=== PATIENT | male | born 1955 | race Caucasian/White ===

== ENCOUNTER 2018-03-09 15:52 | Emergency (ER) | payer OTHER ==
[~2018-03-09] VITALS: Ht 185.4 cm; Wt 90.0 kg
[2018-03-09 16:20] VITALS: BP 152/92; PULSE 50; RESP 20; TEMP 97.6; O2SAT 98
[2018-03-09] MEDS ORDERED: GABA100C4 PO (16:25)
[2018-03-09] MEDS ORDERED: VITA1000 PO (16:25)
[2018-03-09] MEDS ORDERED: HYDROmorphone HCL PF 2 MG/ML VIAL IV PUSH ONE (17:15)
[2018-03-09] MEDS ORDERED: SODIUM CHLOR 0.9% 1000 ML INJ 1,000 ML IV ONE (17:15)
[2018-03-09] MEDS ORDERED: ONDANSETRON HCL 4 MG/2 ML VIAL IV PUSH ONE (17:15)
[2018-03-09] MEDS ORDERED: ONDANSETRON ODT 4 MG TAB PO ONE (17:45)
[2018-03-09 17:56] LABS: AUTOMATED NEUTROPHIL # 9.6 TH/MM3 (1.8-7.7); BASOPHIL # 0.1 TH/MM3 (0-0.2); BASOPHIL % 0.5 % (0.0-2.0); HEMATOCRIT 43.4 % (39.0-51.0); HEMOGLOBIN 14.5 GM/DL (13.0-17.0); LYMPH % 11.2 % (9.0-44.0); LYMPHOCYTE # 1.3 TH/MM3 (1.0-4.8); MEAN CELL VOLUME 90.4 FL (80.0-100.0); MEAN CORPUSCULAR HEMOGLOBIN 30.1 PG (27.0-34.0); MEAN CORPUSCULAR HGB CONC 33.4 % (32.0-36.0); MEAN PLATELET VOLUME 9.6 FL (7.0-11.0); MONO % 7.6 % (0.0-8.0); MONOCYTE # 0.9 TH/MM3 (0-0.9); NEUT % 80.7 % (16.0-70.0); PLATELET COUNT 197 TH/MM3 (150-450); RED CELL DISTRIBUTION WIDTH 13.2 % (11.6-17.2); WHITE BLOOD COUNT 11.9 TH/MM3 (4.0-11.0)
[2018-03-09 18:16] LABS: ALBUMIN 3.7 GM/DL (3.4-5.0); AST (GOT) 16 U/L (15-37); BICARBONATE 17.5 MEQ/L (21.0-32.0); BLOOD UREA NITROGEN 17 MG/DL (7-18); CALCIUM 8.8 MG/DL (8.5-10.1); CHLORIDE 109 MEQ/L (98-107); CREATININE 1.03 MG/DL (0.60-1.30); GLOMERULAR FILTRATION RATE 73 ML/MIN (>89); GLUCOSE,RANDOM 89 MG/DL (74-106); SODIUM (NA) 142 MEQ/L (136-145)
--- NOTE | 2018-03-09 18:16 | RADRPT ---
EXAM DATE: 03/09/2018 6:06 PM EDT AGE/SEX: 63 years / Male INDICATIONS: Right sided flank pain. CLINICAL DATA: This is the patient's initial encounter. Patient reports that signs and symptoms have been present for 1 day and indicates a pain score of 4/10. MEDICAL/SURGICAL HISTORY: . Hernia. None. RADIATION DOSE: 8.16 CTDI (mGy) COMPARISON: No prior exams available for comparison. TECHNIQUE: Multiple contiguous axial images were obtained through the abdomen. Images were obtained using multiple row detector helical technique. Using automated exposure control and adjustment of the mA and/or kV according to patient size, radiation dose was kept as low as reasonably achievable to o btain optimal diagnostic quality images. DICOM format image data is available electronically for rev iew and comparison. FINDINGS: Lung bases demonstrate some dependent atelectasis. No acute findings in the liver, spleen, adrenals o r pancreas. Small hepatic cyst. There is a tiny 2 mm nonobstructing calculus lower pole left kidney. On the right side there is mild hydronephrosis and ureteral dilatation above a 3 mm calculus just bel ow the pelvic brim. No pelvic masses or adenopathy. CONCLUSION: 1. Right-sided obstructive uropathy with mild right hydronephrosis above a 3 mm calculus in the righ t ureter just below the pelvic brim. 2. 2 mm nonobstructing calculus left kidney. Electronically signed by: Darren Og MD 03/09/2018 6:14 PM EDT
[2018-03-09 18:17] LABS: ALT (GPT) 18 U/L (12-78)
[2018-03-09 18:20] LABS: ALKALINE PHOSPHATASE 54 U/L (45-117); TOTAL BILIRUBIN ADULT 0.9 MG/DL (0.2-1.0)
[2018-03-09] MEDS ORDERED: PERC5TAB12 PO (18:50)
[2018-03-09] MEDS ORDERED: NAPR500T2 PO (18:50)
[2018-03-09] MEDS ORDERED: ONDA4TAB7 SL (18:50)
--- NOTE | 2018-03-09 18:51 | PD ---
HPI Chief Complaint: Flank/Kidney Pain Time Seen by Provider: 17:03 Travel History International Travel<30 days: No Contact w/Intl Traveler<30days: No Traveled to known affect area: No History of Present Illness HPI 63-year-old male presents emerged from complaining of right flank pain ongoing for the past 2 days or so. He said night sweats associated with nausea vomiting. Dark colored urine. No dysuria. History of kidney stones when he was young. No definite fevers. Pains been intermittent. Worsening. No help with [id number] medications. Went to the [facility] where he reportedly had imaging done and urine test, but no results. They say they are closing for the day and he was not feeling any better so I sent him to the emergency department. History Past Medical History Medical History: Denies Significant Hx Tetanus Vaccination: < 5 Years Influenza Vaccination: Yes Social History Alcohol Use: No Tobacco Use: No Allergies-Medications (Allergen,Severity, Reaction): Coded Allergies: No Known Allergies (Verified Allergy, Unknown, 03/09/18) Reported Meds & Prescriptions Reported Meds & Active Scripts Active Reported Vitamin D-1000 (Cholecalciferol) 1,000 Unit Tab 1,000 Units PO DAILY Gabapentin 100 Mg Cap 200 Mg PO TID Review of Systems Except as stated in HPI: all other systems reviewed are Neg Physical Exam Narrative GENERAL: Well-appearing 63 oh man, no acute distress. SKIN: Focused skin assessment warm/dry. HEAD: Atraumatic. Normocephalic. EYES: Pupils equal and round. No scleral icterus. No injection or drainage. ENT: No nasal bleeding or discharge. Mucous membranes pink and moist. NECK: Trachea midline. No JVD. CARDIOVASCULAR: Regular rate and rhythm. No murmur appreciated. RESPIRATORY: No accessory muscle use. Clear to auscultation. Breath sounds equal bilaterally. GASTROINTESTINAL: Abdomen soft, non-tender, nondistended. Hepatic and splenic margins not palpable. MUSCULOSKELETAL: No obvious deformities. No clubbing. No cyanosis. No edema. NEUROLOGICAL: Awake and alert. No obvious cranial nerve deficits. Motor grossly within normal limits. Normal speech. PSYCHIATRIC: Appropriate mood and affect; insight and judgment normal. Data Data Last Documented VS Vital Signs Date Time Temp Pulse Resp B/P (MAP) Pulse Ox O2 Delivery O2 Flow Rate FiO2 03/09/18 16:20 97.6 50 20 152/92 (112) 98 Orders Orders Complete Blood Count With Diff (03/09/18 17:06) Comprehensive Metabolic Panel (03/09/18 17:06) Iv Access Insert/Monitor (03/09/18 17:06) Urinalysis - C+S If Indicated (03/09/18 17:06) Lipase (03/09/18 17:06) Hydromorphone Pf Inj (Dilaudid Pf Inj) (03/09/18 17:15) Ondansetron Inj (Zofran Inj) (03/09/18 17:15) Sodium Chlor 0.9% 1000 Ml Inj (Ns 1000 M (03/09/18 17:15) Ct Abd/Pel W/O Iv Contrast (03/09/18 ) Ondansetron Odt (Zofran Odt) (03/09/18 17:45) Labs Laboratory Tests Test 03/09/18 17:45 White Blood Count 11.9 TH/MM3 Red Blood Count 4.80 MIL/MM3 Hemoglobin 14.5 GM/DL Hematocrit 43.4 % Mean Corpuscular Volume 90.4 FL Mean Corpuscular Hemoglobin 30.1 PG Mean Corpuscular Hemoglobin Concent 33.4 % Red Cell Distribution Width 13.2 % Platelet Count 197 TH/MM3 Mean Platelet Volume 9.6 FL Neutrophils (%) (Auto) 80.7 % Lymphocytes (%) (Auto) 11.2 % Monocytes (%) (Auto) 7.6 % Eosinophils (%) (Auto) 0.0 % Basophils (%) (Auto) 0.5 % Neutrophils # (Auto) 9.6 TH/MM3 Lymphocytes # (Auto) 1.3 TH/MM3 Monocytes # (Auto) 0.9 TH/MM3 Eosinophils # (Auto) 0.0 TH/MM3 Basophils # (Auto) 0.1 TH/MM3 CBC Comment DIFF FINAL Differential Comment Blood Urea Nitrogen 17 MG/DL Creatinine 1.03 MG/DL Random Glucose 89 MG/DL Total Protein 7.0 GM/DL Albumin 3.7 GM/DL Calcium Level 8.8 MG/DL Alkaline Phosphatase 54 U/L Aspartate Amino Transf (AST/SGOT) 16 U/L Alanine Aminotransferase (ALT/SGPT) 18 U/L Total Bilirubin 0.9 MG/DL Sodium Level 142 MEQ/L Potassium Level 3.8 MEQ/L Chloride Level 109 MEQ/L Carbon Dioxide Level 17.5 MEQ/L Anion Gap 16 MEQ/L Estimat Glomerular Filtration Rate 73 ML/MIN Lipase 61 U/L [facility] Medical Decision Making Medical Screen Exam Complete: Yes Emergency Medical Condition: Yes Interpretation(s) LABS: CBC is remarkable for mild leukocytosis. CMP is remarkable for mildly elevated anion gap acidosis. Lipase normal. CT abdomen pelvis: Mild right hydronephrosis but a 3 mm calculus in the right ureter just below the pelvic brim. Differential Diagnosis Renal lithiasis, UTI, infection, AAA, other Narrative Course 63-year-old male with flank pain and dark colored urine, seen at the [place]. Unable to get any results. Found to have renal lithiasis. Looks well. Much improved. 3 mm stone distal ureter likely pass on its own. Recommend supportive treatment. Diagnosis Primary Impression: Renal lithiasis Additional Instructions: Follow-up with your primary doctor in the next 3-5 days. Take Naprosyn as needed for pain. Take Percocet as needed for severe pain. Take Zofran if needed for nausea or vomiting. Return to the emergency part for any worsening fevers, pain, vomiting, or any other new or worsening symptoms. Med/Other Pt SpecificInfo: Prescription(s) given Scripts Ondansetron Odt (Ondansetron Odt) 4 Mg Tab 4 MG SL Q8HR Y for Nausea/Vomiting, #12 TAB 0 Refills Prov: Donald Olivarez MD 03/09/18 Oxycodone-Acetaminophen (Percocet) 5-325 mg Tab 1-2 TAB PO Q6H Y for PAIN, #12 TAB 0 Refills Prov: Donald Olivarez MD 03/09/18 Naproxen (Naproxen) 500 Mg Tab 500 MG PO BID for 5 Days, #10 TAB 0 Refills Prov: Donald Olivarez MD 03/09/18 Disposition: 01 DISCHARGE HOME Condition: Stable Donald Olivarez MD Mar 09, 2018 18:51
== END 2018-03-09 19:36 | disposition home or self-care (01) ==
LOC: NEPD 15:52
DX: N13.2 Hydronephrosis with renal and ureteral calculous obstruction (principal); R61 Generalized hyperhidrosis; R11.2 Nausea with vomiting, unspecified; Z87.442 Personal history of urinary calculi
CPT/HCPCS: 74176; 80053; 83690; 85025; 96374; 99284; J1170; J7030